=== PATIENT | female | born 1975 | race Caucasian/White ===

== ENCOUNTER 2020-05-05 19:27 | Emergency (ER) | payer OTHER ==
[~2020-05-05] VITALS: Ht 162.6 cm; Wt 113.4 kg
[2020-05-05 20:27] VITALS: BP 142/86
--- NOTE | 2020-05-05 21:07 | NUR ---
CORONAVIRUS SWAB SAMPLE COLLECTED AND SENT TO THE LAB.
== END 2020-05-05 21:49 | disposition home or self-care (01) ==
LOC: ER 19:37
DX: J45.909 Unspecified asthma, uncomplicated (principal); Z20.828 Contact with and (suspected) exposure to other viral communicable diseases; Z91.010 Allergy to peanuts; Z91.018 Allergy to other foods
CPT/HCPCS: 71045; 99284; C9803; U0003